=== PATIENT | male | born 2000 | race Caucasian/White ===

== ENCOUNTER 2024-04-05 14:41 | Emergency (ER) | payer MEDICAID ==
[~2024-04-05] VITALS: Ht 180.3 cm; Wt 195.0 kg
[2024-04-05 14:56] VITALS: BP 145/90; PULSE 100; RESP 18; TEMP 97.9; O2SAT 99
[2024-04-05] MEDS ORDERED: ACETAMINOPHEN 500MG TABLET PO ONE (16:00)
[2024-04-05] MEDS ORDERED: IBUPROFEN 600MG TABLET PO ONE (16:00)
[2024-04-05] MEDS ORDERED: TOPUD MT (16:25)
[2024-04-05] MEDS ORDERED: METH-653 MT (16:25)
== END 2024-04-05 16:45 | disposition home or self-care (01) ==
LOC: ER 14:48
DX: R51.9 Headache, unspecified (principal); V49.40XA Driver injured in collision with unspecified motor vehicles in traffic accident, initial encounter; Y93.89 Activity, other specified; Y92.89 Other specified places as the place of occurrence of the external cause; Y99.8 Other external cause status
CPT/HCPCS: 99283